=== PATIENT | female | born 1960 | race African-American/Black ===

== ENCOUNTER → 2018-08-01 | Day surgery (SDC) | payer OTHER ==
[~2018-08-01] MED LIST: AMLO10TA6 PO; CHOL100013 PO; HYDR12.575 PO; HYDROmorphone 2 MG/ML VIAL IV PRN; IV RINGERS,LACTATED 1000ML 1,000 ML IV SCH; LIDOCAINE 1% PF 2 ML VIAL. ID PRN; LIDOCAINE 1% PF 2 ML VIAL. ONE; MORPHINE SULFATE 2 MG/ML VIAL. IV PRN; OMEG-117 PO; ONDANSETRON PF 4 MG/2 ML VIAL. IV PRN; PROCHLORPERAZINE 10 MG/2 ML VIAL. IV PRN; PROPOFOL 40 ML IV ONE; fentaNYL PF VIAL 100 MCG/2 ML VIAL IV PRN
--- NOTE | 2018-08-01 07:27 | PDOC2 ---
CONSULT Date of Consult Date of Consult DATE: 08/01/18 TIME: 07:21 Reason for Consult Reason for Consult: Surveillance for Crohns disease with colonoscopy Identification/Chief Complaint Chief Complaint 58 yo femal seen for Crohns surveillance. She has regular bowel movements without diarrhea or constipation. No change in weight or appetite is noted. No melena and/or hematochezia is present. She denies any extra-intestinal manifestations of IBD at this time and is without additional complaints. Past Medical History Cardiovascular: HTN GI: Inflam bowel disease Family History Family History: Cancer (breast), Heart Disease Social History No ALCOHOL: rare Current Medications Current Medications Current Medications Ondansetron HCl (Zofran) 4 mg PRN Q6HRS PRN IV NAUSEA/VOMITING; Start at 07:00; Stop 08/02/18 at 06:59 Fentanyl Citrate (Fentanyl 2ml Vial) 25 mcg PRN Q5MIN PRN IV MILD PAIN; Start 08/01/18 at 07:00; Stop 08/02/18 at 06:59 Fentanyl Citrate (Fentanyl 2ml Vial) 50 mcg PRN Q5MIN PRN IV MODERATE TO SEVERE PAIN; Start 08/01/18 at 07:00; Stop 08/02/18 at 06:59 Morphine Sulfate (Morphine Sulfate) 1 mg PRN Q10MIN PRN IV SEVERE PAIN; Start 08/01/18 at 07:00; Stop 08/02/18 at 06:59 Ringer's Solution 1,000 ml @ 30 mls/hr Q24H IV Last administered on at 06:29; Start 08/01/18 at 07:00; Stop 08/01/18 at 18:59 Lidocaine HCl (Xylocaine-Mpf 1% 2ml Vial) 2 ml PRN 1X PRN ID IV START; Start 08/01/18 at 07:00; Stop 08/02/18 at 06:59 Hydromorphone HCl (Dilaudid) 0.5 mg PRN Q10MIN PRN IV SEV PAIN, Second choice; Start 08/01/18 at 07:00; Stop 08/02/18 at 06:59 Prochlorperazine Edisylate (Compazine) 5 mg PACU PRN PRN IV NAUSEA, MRX1; Start 08/01/18 at 07:00; Stop 12/29/18 at 06:59 Propofol 40 ml @ As Directed STK-MED ONCE IV ; Start 08/01/18 at 07:01; Stop 08/01/18 at 07:03; Status DC Lidocaine HCl (Xylocaine-Mpf 1% 2ml Vial) 2 ml STK-MED ONCE .ROUTE ; Start at 07:01; Stop 08/01/18 at 07:03; Status DC Active Scripts Active Reported Vitamin D (Cholecalciferol (Vitamin D3)) 1,000 Unit Capsule 1 Cap PO DAILY Fish Oil 1,200 mg Softgel ([place]-3/Dha/Epa/Fish Oil) 1 Each Capsule.dr 1 Each PO DAILY Hydrochlorothiazide Capsule (Hydrochlorothiazide) 12.5 Mg Capsule 12.5 Mg PO DAILY Amlodipine Besylate 10 Mg Tablet 10 Mg PO DAILY Allergies Allergies: Coded Allergies: No Known Drug Allergies (Unverified , 07/30/18) Physical Exam General: Alert, Oriented X3 Lungs: Clear to auscultation Heart: Regular rate, Normal S1, Normal S2 Abdomen: Normal bowel sounds, Soft, No tenderness Assessment/Plan Assessment/Plan Crohns disease- surveillance exam is recommended at this time. Risks and benefits discussed with patient who is willing to proceed, SHANITA DUARTE MD Aug 01, 2018 07:26
[2018-08-01 08:18] VITALS: BP 132/89
--- NOTE | 2018-08-04 15:07 | PATHOLOGY ---
[facility] Accession Number: [id number] . 01 Material submitted: . PART A: RIGHT COLON PART B: TRANSVERSE PART C: LEFT COLON . 01 Clinical history: . Crohn's, screening . 02 Diagnosis: A. Colonic mucosa, right colon, biopsies: - Segments of colonic mucosa showing no evidence of an active chronic destructive colitis, dysplasia, or malignancy. . B. Colonic mucosa, transverse colon biopsies: - Segments of colonic mucosa showing no evidence of an active chronic destructive colitis, dysplasia, or malignancy. . C. Colonic mucosa, left colon biopsies: - Segments of colonic mucosa showing no evidence of an active chronic destructive colitis, dysplasia, or malignancy. [facility]/08/04/2018 . 02 Comment: There is no evidence of active Crohn's colitis, dysplasia, or malignancy. (JPM:[facility] 08/04/2018) . 02 Electronically signed: . Abe Scherer MD, Pathologist NPI- [id number] . 01 Gross description: . A. Received in formalin labeled "Mazariegos Galvan, Sandy, right colon," are multiple segments of tom soft tissue measuring 1.7 x 0.6 x 0.1 cm in aggregate dimensions. The specimen is filtered and entirely submitted in cassette A1. . B. Received in formalin labeled "Mazariegos Galvan, Sandy, transverse," are multiple segments of tom soft tissue measuring 2.5 x 0.4 x 0.2 cm in aggregate dimensions. The specimen is filtered and entirely submitted in cassette B1. . C. Received in formalin labeled "Mazariegos Galvan, Sandy, left colon," are multiple segments of tom soft tissue measuring 1.5 x 0.6 x 0.2 cm in aggregate dimensions. The specimen is filtered and entirely submitted in cassette C1. ([facility]; 08/01/2018) TOB/TOB . 02 Pathologist provided ICD-10: Z12.11, K50.90 . 02 CPT . 931447, 307581, 622576 Specimen Comment: A courtesy copy of this report has been sent to Specimen Comment: [phone], . Specimen Comment: Report sent to / DR ROA Performed at: [facility] [address], [place] [id number] MD Kenton Lomeli MD Phone: [phone] Performed at: 02 [facility] [address] [place], [place] [id number] MD Abe Scherer MD Phone: [phone]
== END | disposition home or self-care (01) ==
LOC: ENDOS 06:00
PROVIDERS: ATTEND Internal Medicine Gastroenterology
DX: Z12.11 Encounter for screening for malignant neoplasm of colon (principal); K63.89 Other specified diseases of intestine; K64.0 First degree hemorrhoids; K52.9 Noninfective gastroenteritis and colitis, unspecified; Z85.3 Personal history of malignant neoplasm of breast; Z82.49 Family history of ischemic heart disease and other diseases of the circulatory system; Z79.899 Other long term (current) drug therapy
CPT/HCPCS: 45380; 88305; J2704; 45385